=== PATIENT | female | born 1980 | race Caucasian/White ===

== ENCOUNTER 2019-09-09 11:40 | Outpatient (CLI) | payer OTHER, SELFPAY ==
[2019-09-11 07:21] LABS: COVID-19 RT-PCR Result NEGATIVE (Negative)
== END 2019-09-09 12:00 ==
PROVIDERS: PCP Nurse Practitioner Family; Visit Provider Nurse Practitioner Family
DX: Z11.59 Encounter for screening for other viral diseases (principal)
CPT/HCPCS: U0003

== ENCOUNTER 2020-02-21 02:18 | Outpatient (CLI) | payer OTHER, SELFPAY ==
[2020-02-24 23:25] LABS: Patient Race White; SARS-CoV-2 RNA Undetected (Undetected); SARS-CoV-2 Specimen Source Nasal
== END 2020-02-21 02:38 ==
PROVIDERS: PCP Nurse Practitioner Family; Visit Provider Nurse Practitioner Family
DX: R09.81 Nasal congestion (principal)
CPT/HCPCS: U0003

== ENCOUNTER 2020-03-20 11:45 | Outpatient (CLI) | payer OTHER, SELFPAY ==
[2020-03-23 21:27] LABS: COVID-19 RT-PCR Result NEGATIVE (Negative)
== END 2020-03-20 12:05 ==
PROVIDERS: PCP Nurse Practitioner Family; Visit Provider Nurse Practitioner Family
DX: Z20.828 Contact with and (suspected) exposure to other viral communicable diseases (principal)
CPT/HCPCS: U0003

== ENCOUNTER 2021-06-08 04:02 | Outpatient (CLI) | payer BC, SELFPAY ==
[2021-06-08 08:23] LABS: Hemoglobin A1C 5.4 % (<5.7)
[2021-06-08 09:06] LABS: TSH (W/Ref FT4) 1.56 uIU/mL (0.36-3.74)
[2021-06-08 09:47] LABS: Calculated LDL 116 mg/dL (<100); Cholesterol 202 mg/dL (<200); HDL Cholesterol 67 mg/dL (40-60); Triglyceride 99 mg/dL (<150)
[2021-06-09 10:19] LABS: Hepatitis C Ab w Rflx HCV PCR Negative (Negative)
== END 2021-06-08 04:03 | disposition home or self-care (01) ==
LOC: LBO 04:03
PROVIDERS: PCP Nurse Practitioner Family; Referring Provider Nurse Practitioner Family; Visit Provider Nurse Practitioner Family
DX: N92.6 Irregular menstruation, unspecified (principal); Z13.1 Encounter for screening for diabetes mellitus; Z13.220 Encounter for screening for lipoid disorders; Z11.59 Encounter for screening for other viral diseases
CPT/HCPCS: 36415; 80061; 86803; 83036; 84443

== ENCOUNTER 2021-07-13 01:45 | Outpatient (CLI) | payer BC, SELFPAY ==
--- NOTE | 2021-07-13 07:15 | DI.MAMMO_ITS ---
Exam(s) MAMMO SCREENING EXAM: MAMMO SCREENING CLINICAL HISTORY: screening, Z12.39 TECHNIQUE: Bilateral full field digital CC and MLO mammographic images were obtained with 3D tomosyn thesis and utilizing computer aided detection (CAD). COMPARISON: None. FINDINGS: Masses/Architectural Distortion: None seen. Microcalcifications: No suspicious pleomorphic-type are seen. Skin Thickening/Nipple Retraction: None. IMPRESSION: 1. No significant interval change with no specific features of malignancy noted. 2. Unless there is more urgent need, screening mammography is recommended, as per [employer] guidelines. BI-RADS Category 1 - Negative Breast Density - Category C - Heterogeneously dense Breast density category C or D implies that the patient has dense breast tissue. Dense breast tissue is very common and is not abnormal but dense breast tissue can make it harder to find cancer on a ma mmogram. Also, dense breast tissue may increase their breast cancer risk. This information about the result of the mammogram report was provided to the patient to raise their awareness. Use this report when you speak with the patient about their risks for breast cancer, which includes their family hist ory. At that time, you may recommend for more screening tests (Ultrasound or MRI) as they might be us eful based on their risk. A negative radiographic report should not delay biopsy if a dominant or clinically suspicious mass is present. Up to ten percent of cancers are not identified on mammography. A negative report may reinforce clinical impression. Adenosis and dense breasts may obscure an underlying neoplasm. False positive reports average 6 to 10%. Patient will receive a letter notifying them of these results.
== END 2021-07-13 02:05 ==
PROVIDERS: PCP Nurse Practitioner Family; Visit Provider Nurse Practitioner Family
DX: Z12.31 Encounter for screening mammogram for malignant neoplasm of breast (principal)
CPT/HCPCS: 77063; 77067

== ENCOUNTER 2022-06-30 03:05 | Outpatient (CLI) | payer BC, SELFPAY ==
--- NOTE | 2022-06-30 15:00 | NS.NUTBLAN_ITS ---
Misty was referred for weight management education. She reports that she has been on a diet since she was 17 years old. In her 30s she was very active and got her weight down to 150 lbs. This is her goal weight. Last year she lost 40 lbs before she turned 41 by following a prepackaged keto program. She has regained 35 lbs since stopping program. 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 All family members eat different foods- no family meal will meet needs as twins are picky and her is lactose intolerant. Often times Misty will just eat the left overs from dinner and not prepare anything for herself. 5'4 187 lbs BMI: 31 Exercise: none Diet Recall: breakfast burrito for B, Lunch: hummus and veggies, Dinner: tator tots, cheeseburger pie (part of), adolfo egg. Recent labs: chol: 202, LDL: 116, HDL: 67, Tri, TSH and A1C wnl. Session today focused on simple meals she can prepare in advance and rely on during week. Going forward will track meals on food himanshu and limit carb intake to 80-100 grams, protein 60-70 grams, fat 45-55 g fat. Breakfast items: breakfast burrito andorran yogurt/nuts/fruit ww surinamese muffin with PB J Protein Shake Lunch: sandwich/4 oz protein left overs Protein Shake + salad Dinner: high protein lean cuisine with extra veggies or salad 4 oz protein, 1/2 cup starch, 2 cups veggies Snack: protein bars, protein shakes Goal: 4 lbs weight loss per month. Follow up 07/28/22 at 3 pm.
== END 2022-06-30 03:06 | disposition home or self-care (01) ==
LOC: DS 03:05
PROVIDERS: PCP Nurse Practitioner Family; Visit Provider Dietitian, Registered
DX: E66.8 Other obesity (principal); Z68.31 Body mass index [BMI] 31.0-31.9, adult; Z71.3 Dietary counseling and surveillance
CPT/HCPCS: 97802

== ENCOUNTER 2022-07-21 03:30 | Outpatient (CLI) | payer BC, SELFPAY ==
[2022-07-21 08:27] LABS: Hemoglobin A1C 5.2 % (<5.7)
[2022-07-21 08:46] LABS: Calculated LDL 84 mg/dL (<100); Cholesterol 169 mg/dL (<200); HDL Cholesterol 79 mg/dL (40-60); Triglyceride 30 mg/dL (<150)
== END 2022-07-21 03:31 | disposition home or self-care (01) ==
LOC: LBO 03:30
PROVIDERS: PCP Nurse Practitioner Family; Visit Provider Nurse Practitioner Family
DX: E78.5 Hyperlipidemia, unspecified (principal); Z13.1 Encounter for screening for diabetes mellitus
CPT/HCPCS: 36415; 80061; 83036

== ENCOUNTER 2022-08-12 00:25 | Outpatient (CLI) | payer BC, SELFPAY ==
--- NOTE | 2022-08-12 15:45 | DI.MAMMO_ITS ---
Exam(s) MAMMO SCREENING EXAM: MAMMO SCREENING CLINICAL HISTORY: screening,Z12.39 TECHNIQUE: Mammograms were interpreted according to the usual protocol including computer analysis w [employer] CAD system, tomosynthesis and C-view imaging. COMPARISON: 2021 FINDINGS: The breasts are composed of scattered fibroglandular densities, Breast Density category B. No suspicious masses or suspicious microcalcifications are seen. No skin thickening or abnormal axillary lymph nodes are seen. There has been no significant change from prior exams. IMPRESSION: BI-RADS Category 1, Negative mammogram Yearly screening mammography is recommended. Breast Density - Category B, scattered fibroglandular densities. A negative radiographic report should not delay biopsy if a dominant or clinically suspicious mass is present. Up to ten percent of cancers are not identified on mammography. A negative report may reinforce clinical impression. Adenosis and dense breasts may obscure an underlying neoplasm. False positive reports average 6 to 10%. Patient will receive a letter notifying them of these results.
== END 2022-08-12 00:45 ==
LOC: DI 00:26
PROVIDERS: PCP Nurse Practitioner Family; Visit Provider Nurse Practitioner Family
DX: Z12.31 Encounter for screening mammogram for malignant neoplasm of breast (principal)
CPT/HCPCS: 77063; 77067

== ENCOUNTER → 2023-08-14 01:28 | Outpatient (CLI) | payer BC, SELFPAY ==
--- NOTE | 2023-08-14 09:00 | DI.MAMMO_ITS ---
Exam(s) MAMMO SCREENING EXAM: MAMMO SCREENING CLINICAL HISTORY: screening,z12.39. TECHNIQUE: Bilateral full field digital CC and MLO mammographic images were obtained with 3D tomosyn thesis and utilizing computer aided detection (CAD). COMPARISON: Prior mammograms were reviewed. FINDINGS: No new right breast findings. Posteriorly in the left breast on the MLO view there is an asymmetric density-possible nodule measuri ng approximately 11 by 6 mm, located 13 cm in from the nipple. This may represent a benign lymph nod e but is more evident than on prior mammograms. There are no malignant-appearing microcalcification groups in this region or elsewhere in either [address]. There is no significant architectural distortion nor skin thickening-retraction. IMPRESSION: 1. Radiographic evidence of malignancy in the right breast. 2. Asymmetric density as possible nodule posteriorly in left breast as described above. Spot dorene geoff MLO view and breast ultrasound recommended. BI-RADS Category 0 - Assessment Incomplete: Need additional imaging evaluation Breast Density - Category B - Scattered areas of fibroglandular density Breast density Category C or D implies that the patient has dense breast tissue. Dense breast tissue can make it harder to find cancer on a mammogram. Dense breast tissue is also associated with an incr eased risk of breast cancer. This information about the result of the mammogram report was provided to the patient to raise their awareness. Use this report when you speak with the patient about their risks for breast cancer, which includes their family history. At that time, you may recommend additional screening tests (Ultrasoun d or MRI) as these tests may add significant information. A negative radiographic report should not delay biopsy if a dominant or clinically suspicious mass is present. Up to ten percent of cancers are not identified on mammography. A negative report may reinforce clinical impression. Adenosis and dense breasts may obscure an underlying neoplasm. False positive reports average 6 to 10%. Patient will receive a letter notifying them of these results.
== END ==
PROVIDERS: PCP Nurse Practitioner; Visit Provider Nurse Practitioner
DX: Z12.31 Encounter for screening mammogram for malignant neoplasm of breast (principal); R92.8 Other abnormal and inconclusive findings on diagnostic imaging of breast
CPT/HCPCS: 77063; 77067

== ENCOUNTER → 2023-08-17 02:45 | Outpatient (CLI) | payer BC, SELFPAY ==
--- NOTE | 2023-08-17 | DI.US_ITS ---
Exam(s) MG MAMMO SCREEN CALL BACK UNI US BREAST LT COMPLETE EXAM: MG MAMMO SCREEN CALL BACK UNI-LEFT AND COMPLETE LEFT BREAST ULTRASOUND CLINICAL HISTORY: F/U MAMMO, R92.8,LT BREAST ASYMMETRIC DENSITY,? NODULE OR LYMPH NODE. TECHNIQUE: Unilateral LEFT BREAST spot mammographic images obtained with 3D tomosynthesisand [employer] ng computer aided detection (CAD). . Complete LEFT breast Ultrasound was also performed, including all 4 quadrants, the retroareolar regio n, and the ipsilateral axilla. COMPARISON: Prior mammograms were reviewed. This additional imaging was performed due to findings described on the recent screening mammogram of 08/14/2023. FINDINGS: DIAGNOSTIC MAMMOGRAM: Additional mammographic spot view performed todayis somewhat equivocal. We proceeded with ultrasound. COMPLETE LEFT BREAST ULTRASOUND: Ultrasound performed today reveals a solitary 5 x 3 millimeter microcyst at the 8 o'clock position.. No solid lesions. No findings posteriorly to correspond to the equivocal finding on the mammogram. It is probably benign intramammary lymph node up against the chest wall. Scanning of the ipsilateral axilla reveals no significant adenopathy. IMPRESSION: 1. Benign findings. No mammographic nor ultrasound evidence of malignancy. 2. There is a benign 5 x 3 mm microcyst at the 8 o'clock position seen on ultrasound. Appropriate follow-up as discussed by myself with the patient today is to keep her on a yearly mammog kristin schedule, with earlier imaging if a self detected breast change is noted.. The patient was informed of these findings and recommendations by myself prior to leaving the depart ent today. BI-RADS Category 2 - Benign Findings Breast Density - Category B - Scattered areas of fibroglandular density Breast density Category C or D implies that the patient has dense breast tissue. Dense breast tissue can make it harder to find cancer on a mammogram. Dense breast tissue is also associated with an incr eased risk of breast cancer. This information about the result of the mammogram report was provided to the patient to raise their awareness. Use this report when you speak with the patient about their risks for breast cancer, which includes their family history. At that time, you may recommend additional screening tests (Ultrasoun d or MRI) as these tests may add significant information. A negative radiographic report should not delay biopsy if a dominant or clinically suspicious mass is present. Up to ten percent of cancers are not identified on mammography. A negative report may reinforce clinical impression. Adenosis and dense breasts may obscure an underlying neoplasm. False positive reports average 6 to 10%. Patient will receive a letter notifying them of these results.
== END ==
PROVIDERS: PCP Nurse Practitioner; Visit Provider Nurse Practitioner
DX: R92.8 Other abnormal and inconclusive findings on diagnostic imaging of breast (principal)
CPT/HCPCS: 76642; 77063; 77067

== ENCOUNTER 2024-09-02 04:16 | Outpatient (CLI) | payer BC, SELFPAY ==
[2024-09-02 08:26] LABS: Abs Immature Grans 0.05 10^3/uL (0.0-0.06); Absolute Basophil Count 0.05 10^3/uL (0.0-0.2); Absolute Eosinophil Count 0.13 10^3/uL (0.0-0.7); Absolute Lymphocyte Count 2.26 10^3/uL (1.2-3.4); Absolute Monocyte Count 0.61 10^3/uL (0.1-0.8); Absolute Neutrophil Count 6.16 10^3/uL (1.2-6.7); Basophils % 0.5 %; Eosinophils % 1.4 %; HCT 39.2 % (36.0-46.0); Immature Grans % 0.5 %; Lymphocytes % 24.4 %; MCH 30.1 pg (27.0-33.0); MCHC 33.2 % (32.0-36.0); MCV 91 fL (80-95); MPV 9.5 fL (8.0-11.0); Monocytes % 6.6 %; Neutrophils % 66.6 %; Platelet Count 278 10^3/uL (130-400); RBC 4.32 10^6/uL (3.93-5.22); RDW 12.7 % (11.7-14.6); RDW-SD 42.5 fL; WBC 9.26 10^3/uL (4.4-10.8)
[2024-09-02 08:27] LABS: Bilirubin Negative (Negative); Blood Trace-lysed (Negative); Clarity Clear (Clear); Glucose Negative (Negative); Ketones Negative (Negative); Leukocyte Esterase Negative (Negative); Nitrite Negative (Negative); Urobilinogen 0.2 mg/dL (Up to 0.2); pH 6.5 (5-8)
[2024-09-02 08:36] LABS: Bacteria Few HPF (Negative); C & S Indicated? No; Casts Negative LPF (Negative); Crystals Negative HPF (Negative); Epithelial Cells Moderate HPF (Negative); Mucus Negative (Negative); WBC 0-2 HPF (0-5)
[2024-09-02 08:38] LABS: Hemoglobin A1C 5.3 % (<5.7)
[2024-09-02 09:30] LABS: Anion Gap 5.7 mmol/L (3-11); BUN 13 mg/dL (7-18); CO2 30.3 mmol/L (21.0-32.0); CREATININE 0.6 mg/dL (0.55-1.02); Calculated LDL 91 mg/dL (<100); Chloride 103 mmol/L (98-107); Cholesterol 162 mg/dL (<200); Estimated GFR 114.15 (mL/min/1.73m2); Glucose 93 mg/dL (74-106); HDL Cholesterol 65 mg/dL (>or=50); Sodium 139 mmol/L (136-145); TSH 1.07 uIU/mL (0.36-3.74); Triglyceride 32 mg/dL (<150)
[2024-09-02 18:45] LABS: LH 7.7 mIU/mL (See Note)
== END 2024-09-02 04:17 | disposition home or self-care (01) ==
PROVIDERS: Absent Provider Family Medicine; PCP Nurse Practitioner; Referring Provider Family Medicine; Visit Provider Family Medicine
DX: Z13.9 Encounter for screening, unspecified (principal); E66.9 Obesity, unspecified; E78.5 Hyperlipidemia, unspecified; N95.1 Menopausal and female climacteric states
CPT/HCPCS: 36415; 80048; 80061; 81003; 81015; 83002; 83036; 84443; 85025

== ENCOUNTER 2024-10-15 02:43 | Outpatient (CLI) | payer BC, SELFPAY ==
--- NOTE | 2024-10-15 08:15 | DI.MAMMO_ITS ---
Exam(s) MAMMO SCREENING EXAM: MAMMO SCREENING CLINICAL HISTORY: screening, fam hx of bc. Z80.3, Z12.39 TECHNIQUE: Bilateral full field digital CC and MLO mammographic images were obtained with 3D tomosynthesis and utilizing computer aided detection (CAD). COMPARISON: Comparison is made with prior examinations. FINDINGS: Masses/Architectural Distortion: No suspicious masses or areas of architectural distortion are present. Microcalcifications: No suspicious pleomorphic-type are seen. Skin Thickening/Nipple Retraction: None. IMPRESSION: 1. No significant interval change with no specific features of malignancy noted. 2. Unless there is more urgent need, screening mammography is recommended, as per [place] [employer] guidelines. BI-RADS Category 1 - Negative Breast Density - Category C - The breast are heterogeneously dense, which may obscure small masses. Breast density Category C or D implies that the patient has dense breast tissue. Dense breast tissue can make it harder to find cancer on a mammogram. Dense breast tissue is also associated with an increased risk of breast cancer. This information about the result of the mammogram report was provided to the patient to raise their awareness. Use this report when you speak with the patient about their risks for breast cancer, which includes their family history. At that time, you may recommend additional screening tests (Ultrasound or MRI) as these tests may add significant information. A negative radiographic report should not delay biopsy if a dominant or clinically suspicious mass is present. Up to ten percent of cancers are not identified on mammography. A negative report may reinforce clinical impression. Adenosis and dense breasts may obscure an underlying neoplasm. False positive reports average 6 to 10%. Patient will receive a letter notifying them of these results.
== END 2024-10-15 03:03 ==
LOC: DI 02:43
PROVIDERS: PCP Nurse Practitioner; Visit Provider Family Medicine
DX: Z80.3 Family history of malignant neoplasm of breast (principal); Z12.31 Encounter for screening mammogram for malignant neoplasm of breast; R92.333 Mammographic heterogeneous density, bilateral breasts
CPT/HCPCS: 77063; 77067

== ENCOUNTER 2024-11-04 10:08 | Outpatient (REF) | payer BC, SELFPAY | END 2024-11-04 10:09 | disposition home or self-care (01) | LOC: LBN 10:08 | PROVIDERS: PCP Nurse Practitioner; Visit Provider Obstetrics & Gynecology | DX: Z12.4 Encounter for screening for malignant neoplasm of cervix (principal) | CPT/HCPCS: 88142; 87624 ==

== ENCOUNTER 2024-12-05 12:43 | Outpatient (CLI) | payer BC, SELFPAY ==
--- NOTE | 2024-12-05 16:34 | W.NUTRFU ---
Date of service: 12/05/24 Time of Service: 15:00 Nutrition Note NOTE: Misty referred to nutrition appt for guidance with weight mgt. At provider visit last month she was 88kg with a BMI of 33 for 65. Estimated energy needs currently 1976kcals per day We based our talk today on cutting this back to menu planning for 1700kcals and working on planned exercise to become more consistent. We discussed either tracking and making adjustments or feeing goals in menu planning resources to hit the following targets or get closer to them on a consisten basis: 1700kcals, 170g total CHO, 125g protein, 57g total fat, at least 30g fiber daily and no more ainsley 30g added sugar daily and try to limit SFA's to about 20g per day. 2L fluids suggested as good goal - more if exercising/sweating/thirsty Suggested beans, legumes for fiber rich protein sources as well as whole soy foods for phytoestrogens. Misty was emailed with some sample menus and some pointers on how to edit sample menus to help with compliance. She has my contact info to reach out with any questions or need for follow up Time Spent in Nutritional Counseling and Treatment: 25 min
== END 2024-12-05 12:44 | disposition home or self-care (01) ==
LOC: DS 12:43
PROVIDERS: PCP Nurse Practitioner; Visit Provider Dietitian, Registered
DX: R63.5 Abnormal weight gain (principal)
CPT/HCPCS: 00123; 97802